=== PATIENT | male | born 1995 | race Two or more races ===

== ENCOUNTER 2025-07-11 09:22 | Emergency (ER) | payer BC ==
[2025-07-11] MEDS: Amoxicillin/Clavulanate K 875-125 MG Tab PO SCH (10:34)
[2025-07-11] MEDS: Lidocaine 2% Viscous Solution 15 ML UD PO ONE (10:34)
[2025-07-11] MEDS: Benzocaine 20% Topical Spray UD MUCMEM ONE (10:34)
[2025-07-11] MEDS: Acetaminophen/oxyCODONE 325-5 MG Tab PO ONE (10:35)
== END 2025-07-11 10:38 | disposition home or self-care (01) ==
LOC: MW.ED 09:22
DX: K04.7 Periapical abscess without sinus (principal); Z79.899 Other long term (current) drug therapy
CPT/HCPCS: 41800; 99282; A9270; J3490; 10060; 99284